=== PATIENT | male | born 1995 | race Caucasian/White ===

== ENCOUNTER 2025-09-11 15:56 | Emergency (ER) | payer SELFPAY ==
[2025-09-11 15:58] VITALS: BP 136/91; PULSE 126; RESP 20; TEMP 36.7; O2SAT 100; BMI 26.4
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
[2025-09-11 16:27] LABS: Hematocrit 40.8 % (40-54); Hemoglobin 13.8 g/dL (13.0-16.5); Immature Granulocytes Count 0.030 X10^3/uL (0.0-0.0); Mean Corp Hgb Conc 33.8 g/dL (32-36); Mean Corpuscular Volume 90.7 fL (80-94); Mean Platelet Vol. 9.8 fl (6.2-12.0); NRBC Flagged by Analyzer 0 % (0-5); Platelet Count 243 K/mm3 (150-450); RBC Distribution Width CV 12.5 % (11.6-14.6); RBC Distribution Width SD 41.4 fl (35.1-43.9); Red Blood Count 4.50 M/mm3 (4.6-6.2); White Blood Count 8.4 K/mm3 (4.4-11.0)
[2025-09-11 16:39] LABS: Prothrombin Time (Protime)PT. 12.4 SECONDS (11.7-14.9)
[2025-09-11 16:40] LABS: Partial Thromboplast Time 27.0 Seconds (24.1-36.2)
[2025-09-11 16:51] LABS: AST(SGOT) 28 U/L (<=37); Alanine Aminotransfer ALT/SGPT 28 U/L (<=46); Albumin, Serum 4.6 g/dL (3.5-5.0); Alkaline Phosphatase 72 U/L (40-129); Anion Gap 14 (5-15); BUN 7 mg/dL (4-19); BUN/Creat Ratio 7.3 RATIO (10-20); Bilirubin, Direct 0.31 mg/dL (0.00-0.30); Calcium,Total 9.5 mg/dL (7.6-11.0); Carbon Dioxide 21.7 mmol/L (21.0-32.0); Chloride 102 mmol/L (98-108); Estimated Creatinine Clearance 96.86 ml/min (50-250); Globulin 2.9 g/dL (2.2-4.2); Glucose 105 mg/dL (70-99); Potassium 3.1 mmol/L (3.3-5.1)
[2025-09-11 16:56] LABS: Alcohol, Blood (Medical)-Serum < 10.1 mg/dL (<=10.0)
[2025-09-11 17:10] VITALS: BP 143/94; PULSE 114; RESP 16; O2SAT 100
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
[2025-09-11 18:00] VITALS: BP 143/94; PULSE 117; RESP 23; O2SAT 100
[2025-09-11 18:19] LABS: Mucous, Urine 0 SEEN /hpf (<or=2+)
[2025-09-11 18:21] LABS: Color, Urine Yellow (Yellow); Glucose, Dipstick Normal (Normal); Ketone-Dipstick Negative (Negative); Leukocyte Esterase-Dipstick Negative /ul (Negative); Nitrite-Dipstick Negative (Negative); Occult Blood-Urine Negative /ul (Negative); Protein-Dipstick 15 mg/dl (Negative); Specific Gravity, Urine 1.010 (1.002-1.030); Urine Bilirubin Dipstick Negative (Negative)
[2025-09-11 18:29] LABS: Barbiturate Urine NEGATIVE (< 200 ng/mL); Benzodiazepine Urine NEGATIVE (< 200 ng/mL); PCP Urine NEGATIVE (< 25 ng/mL); THC Urine PRESUMPTIVE POSITIVE (< 50 ng/mL)
[2025-09-11 18:36] LABS: Red Blood Cells-Urine 0-5 SEEN /hpf (0-5); Squamous Epithelial Cells - UA 0-5 SEEN /hpf (0-5)
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
[2025-09-11 18:59] VITALS: BP 143/94; PULSE 117; RESP 23; TEMP 36.9; O2SAT 100
== END 2025-09-11 19:01 | disposition home or self-care (01) ==
PROVIDERS: Emergency Provider Emergency Medicine; Visit Provider Emergency Medicine
DX: S06.0X0A Concussion without loss of consciousness, initial encounter (principal); M25.511 Pain in right shoulder; S20.229A Contusion of unspecified back wall of thorax, initial encounter; S80.211A Abrasion, right knee, initial encounter; S60.519A Abrasion of unspecified hand, initial encounter; S81.019A Laceration without foreign body, unspecified knee, initial encounter; V89.2XXA Person injured in unspecified motor-vehicle accident, traffic, initial encounter
CPT/HCPCS: 70450; 71260; 72125; 74177; 80048; 80076; 80307; 81001; 82077; 85025; 85610; 85730; 99285; Q9967; A4216